=== PATIENT | male | born 1945 | race Caucasian/White ===

== ENCOUNTER 2017-11-07 05:42 | Inpatient (IN) | payer OTHER ==
[2017-11-07] VITALS (15 sets, daily range): BP systolic 134–191; BP diastolic 63–156
[~2017-11-07] VITALS: Ht 188 cm; Wt 132.1 kg
--- NOTE | ~2017-11-07 | O ---
[facility] [place] [address] OPERATIVE REPORT Name: SHYAM BURCH Room #: 420-P [facility] IN M.R.#: [id number] Admission: 11/07/17 Attend Phys: Shantell Camacho MD, Discharge: 11/15/17 Date of : 47 Report #: [id number] THIS REPORT FOR: //name// CC: FAM unknown Shantell Camacho DATE OF SERVICE: 11/07/2017 PREOPERATIVE DIAGNOSES: 1. Multiple incarcerated recurrent incisional ventral hernias. 2. Loss of abdominal domain. 3. Morbid obesity with a body mass index of 36.77. 4. Diabetes mellitus. 5. Hypertension. 6. Hypercholesterolemia. 7. Gastroesophageal reflux disease. 8. Suspected intra-abdominal adhesions. POSTOPERATIVE DIAGNOSES: 1. Multiple incarcerated recurrent incisional ventral hernias. 2. Loss of abdominal domain. 3. Morbid obesity with a body mass index of 36.77. 4. Diabetes mellitus. 5. Hypertension. 6. Hypercholesterolemia. 7. Gastroesophageal reflux disease. 8. Dense and significant intra-abdominal adhesions. 9. Ischemic abdominal wall fascia with synthetic suture material present. PROCEDURES PERFORMED: 1. Exploratory laparotomy with lysis of adhesions lasting 127 minutes. 2. Debridement of ischemic abdominal wall fascia with explantation of synthetic suture material. 3. Complex abdominal wall reconstruction with open repair of multiple incarcerated recurrent incisional ventral hernias with mesh. 4. Bilateral component separation of the transversus abdominis muscle bilaterally. 5. Adjacent tissue transfer closure of the anterior abdominal wall measuring 44 x 39 cm in dimension (1716 square cm). 6. Skin reduction/resection surgery. 7. Placement of a topical wound VAC device (SAURAV). 8. A modifier 22 procedure for extreme difficulty of procedure secondary to the greater than 2-hour lysis of adhesions in this morbidly obese male with multiple prior operations that required complex abdominal wall closure techniques and pushed the total operative time to greater than 4 hours as opposed to the usual 60-minute open ventral hernia repair with mesh. [address] [address] OPERATIVE REPORT Name: SHYAM BURCH Room #: 420-P [facility] IN .R.#: [id number] Admission: 11/07/17 Attend Phys: Shantell Camacho MD, Discharge: 11/15/17 Date of : 47 Report #: [id number] SURGEON: Shantell Camacho MD ELECTRIC DEICER INSPECTOR: Omari Mckenzie DO ANESTHESIA: General endotracheal anesthesia. ESTIMATED BLOOD LOSS: Minimal (less than 200 mL). COMPLICATIONS: None appreciated. SPECIMENS: 1. All debrided abdominal wall fascia and synthetic material to pathology. 2. Skin to pathology. 3. Omentum to pathology. INDICATIONS: The patient is a 72-year-old obese male who underwent an emergent exploratory laparotomy with Alvin patch repair of a perforated cecum at the time of a colonoscopy in the past. Since that time, the patient has developed recurrent bulging at the site of a prior hernia repair and has now proceeded to have multiple incarcerated recurrent incisional ventral hernias about his longitudinal midline wound. As it is becoming more uncomfortable and is enlarging significantly, indication was for definitive surgical repair. DESCRIPTION OF PROCEDURE: After explaining the risks, benefits and alternatives of the procedure with the patient in detail in the preoperative holding area and obtaining written consent, the patient was brought to the operating room and placed supine on the operating room table. After conducting a thorough timeout procedure, verifying correct patient and procedure, the patient was given general endotracheal anesthesia. Once adequate anesthesia was obtained, his SCDs were hooked up to pneumatic compression device, he was given a preoperative dose of antibiotics in line with the SCIP protocol. The patient's abdomen was now prepped and draped in standard surgical sterile fashion. A #10 bladed scalpel was used to create an elliptical longitudinal incision around his prior incision site that appears to have dehisced as it is quite scalloped today. Electrocautery was used to carry this down through skin and subcutaneous tissues to ensure hemostasis. At the superior most portion of the wound, I was able to gain intra-abdominal access with no bowel identified at that location. A finger was placed in the abdomen and I proceeded to take down the entire longitudinal midline fascial wound in a controlled setting using electrocautery and Metzenbaum scissor dissection. Once I had the longitudinal midline wound opened, I proceeded to continue lysis of adhesions, taking down all loops of small bowel and colon as well as omentum from the posterior aspect of the anterior abdominal wall. Once I had completed freeing this from the abdominal wall, we took down all interloop adhesions as well. We were now able to identify the ligament of Treitz and ran the small bowel in its entirety on [address] [address] OPERATIVE REPORT Name: SHYAM BURCH Room #: 420-P [facility] IN M.R.#: [id number] Admission: 11/07/17 Attend Phys: Shantell Camacho MD, Discharge: 11/15/17 Date of : 47 Report #: [id number] occasions, seeing no evidence of serosal injury enterotomies or other defects. The colon was identified and was healthy and uninjured throughout as well. I now proceeded to debride all nonviable ischemic fascia and hernia sac from the abdominal wall, which included explantation of synthetic suture material. Once I had debrided back to healthy fascia throughout, the fascia was elevated down the midline with Nadeem clamps, I proceeded to score the posterior fascia approximately 0.5 cm lateral to the medial border. This was scored using electrocautery and allowed me into the transversus space where I proceeded to open the entire space as far as possible in craniocaudal direction. Transecting the transversus abdominis muscle, which allowed me into the space allowed us to dissect as far laterally on each side as possible as this was done bilaterally in similar fashion. We now had the ability to approximate the fascia down the midline. Hemostasis was assured intraabdominally and I proceeded to close the posterior layer using looped #1 PDS suture in standard running fashion. This was tied down the subxiphoid location. As we did not have contamination, I selected a piece of Prolene mesh that measured 30 x 30 cm in dimension. This was trimmed to fit in the retrorectus space and was placed into position and sutured into place using numerous sutures of 0 PDS in standard fashion. I then utilized 30 mL of Tisseel to help anchor the mesh into place as well. I then closed the anterior fascia using looped #1 PDS in standard running fashion. The patient's skin had been considerably stretched out from the longstanding hernia and as such, I now performed skin reduction surgery, resecting all excess skin to bring the tissues together to where they were smooth and not on tension. Unfortunately due to the thinned out skin, there was not a lot of subcutaneous tissue underlying the midline wound and I elected to perform an adjacent tissue transfer closure of the anterior abdominal wall. The skin flaps were elevated and counter incisions were made internally longitudinally which allowed me to medially rotate vascularized pedicles of subcutaneous tissue to the midline. This allowed for complete closure overlying the fascial repair and was anchored together using numerous sutures of 3-0 PDS in standard inverted interrupted fashion. Prior to closing this, I did leave another 19-Northern Irish round Giovanni-Hastings drain in the subcutaneous space, which was brought out in the suprapubic space. Prior to closing the anterior fascia, I did leave two 19-Northern Irish round Giovanni-Hastings drains in the retrorectus space emanating from the right and left lower quadrants crossing over low in the pelvis and running up the gutters on each side. These were anchored to the skin using 2-0 nylon in standard fashion as well. I now used skin clyde down the longitudinal midline wound and placed a topical SAURAV wound VAC device at this juncture. At the end of the lengthy procedure that took greater than 4 hours, all instrument, needle and sponge counts were correct. The patient tolerated the lengthy procedure without issue, was awakened in the operating room and transitioned to the recovery room in stable condition with no apparent complications. <ELECTRONICALLY SIGNED> By: Shantell Camacho MD, FACS 11/18/17 [id number] Shantell Camacho MD, FACS /nt
--- NOTE | ~2017-11-07 | HC ---
[facility] [place] [address] CONSULTATION Name: SHYAM BURCH Room #: 420-P [facility] IN M.R.#: [id number] Admission: 11/07/17 Attend Phys: Shantell Camacho MD, Discharge: 11/15/17 Date of : 47 Report #: [id number] THIS REPORT FOR: //name// CC: FAM unknown Shantell Camacho DATE OF SERVICE: 11/11/2017 HISTORY OF PRESENT ILLNESS: The patient is a 72-year-old white male with multiple incarcerated recurrent incisional ventral hernias with loss of abdominal domain, morbid obesity, who was admitted to [facility] and underwent complex abdominal wall reconstruction with open repair in 11/07/2017. He is being monitored regarding hypertension, on lisinopril and metoprolol, his electrolyte abnormalities, renal insufficiency, his diet-controlled diabetes mellitus. We are seeing him in rehabilitation medicine consultation. PAST MEDICAL HISTORY: Includes diabetes mellitus type 2, hypertension, hyperlipidemia, morbid obesity, gout, bilateral total hip replacements. PAST SURGICAL HISTORY: As noted above. MEDICATIONS: Please see the full medication listing. ALLERGIES: OPIOIDS AND AMPICILLIN. HABITS: No history of tobacco abuse, occasional alcohol use. SOCIAL HISTORY: Lives in a house with his , 3 steps in. He was modified independent. Used a standard cane. He also has used a walker after his hip surgeries, but typically uses a cane. does not work and would be able to be of assistance. REVIEW OF SYSTEMS: Did not offer any current complaints of chest pain, shortness of breath or abdominal discomfort. No focal extremity pain complaints. He notes that he has decreased range of motion of the right shoulder and apparently had a very long hospitalization approximately 140 days with apparent hospital LTAC rehabilitation, etc. back in 2016. He notes from that he has had resultant decreased shoulder range of motion on the right. PHYSICAL EXAMINATION: GENERAL: He is a 72-year-old obese, pleasant white male, in no obvious distress. VITAL SIGNS: Last recorded temperature 98, pulse 61, respirations 17, blood pressure 167/73. He is alert and oriented. HEENT: Appeared to be benign. [facility] [address] [place] [address] CONSULTATION Name: SHYAM BURCH Room #: 420-P [facility] IN M.R.#: [id number] Admission: 11/07/17 Attend Phys: Shantell Camacho MD, Discharge: 11/15/17 Date of : 47 Report #: [id number] NEUROLOGIC: Cranial nerves grossly intact. He has a decreased shoulder range of motion of that right shoulder, but no specific pain complaints with movement. He gets to about 70 degrees forward flexion and abduction. Reasonable elbow, wrist and hand movement. Strength is probably a grade 4+ to 4/5, left upper extremity is 4/5. ABDOMEN: He has an abdominal binder in place. He has two abdominal drains that were noted. EXTREMITIES: In his lower extremities, he has no focal calf swelling, functional range of motion with strength grade 4-/5. DTRs are trace to 1. He is needing minimal assist with sit to stand and has difficulty from lower lying surface. He is currently on oxygen 2 liters. ASSESSMENT: A 72-year-old white male with the following problems: 1. Medical complexity with generalized debilitation. 2. Multiple incarcerated recurrent excisional ventral hernias, status post complex abdominal wall reconstruction and open repair 11/07/2017. 3. Acute renal insufficiency. 4. Electrolyte abnormalities. 5. Diabetes mellitus, diet controlled. 6. Morbid obesity. 7. Hypertension. PLAN: The patient will likely benefit from a short acute in-hospital inpatient rehabilitation stay. Insurance will need to be checked. We will be glad to follow along with you regarding his rehab therapy needs. <ELECTRONICALLY SIGNED> By: Peter Ferrer MD 11/19/17 1510 [id number] Peter Ferrer MD /nt
--- NOTE | ~2017-11-07 | EKG ---
[address] [address] ELECTROCARDIOGRAM REPORT Name: SHYAM BURCH Room #: 150-9 ADM IN M.R.#: [id number] Admission: 11/07/17 Attend Phys: Shantell Camacho MD, Discharge: Date of : 47 Report #: [id number] THIS REPORT FOR: //name// [facility] Test Date: 2017-11-07 Test Time: 10:57:52 Pat Name: SHYAM BURCH Department: Room: 150 9 Gender: M Construction Rigger: ROMULO : 1945 Requested By: Shantell Camacho Order Number: [id number] MD: Unruly Hinojosa Measurements Intervals [place] Rate: 53 P: 58 RI: 174 QRS: 59 QRSD: 85 T: 31 QT: 377 QTc: 354 Interpretive Statements Sinus rhythm Borderline T wave abnormalities No previous ECG available for comparison Electronically Signed On 11-07-2017 16:27:27 DEVELOPMENT COORDINATOR by Unruly Hinojosa [email or web address] <ELECTRONICALLY SIGNED> By: Unruly Hinojosa MD 11/07/17 1627 1057 1057 MD MAGDALENO Connell
--- NOTE | ~2017-11-07 | S ---
[facility] [place] [address] SURGICAL PATH RPT PROCEDURE Name: DAVID VINCENT Room #: 420-P ADM IN M.R.#: [id number] Admission: 11/07/17 Date of : 47 Discharge: Report #: [id number] Path Case #: [id number] PATHOLOGY REPORT COLLECTION DATE: 11/07/2017 RECEIVED DATE: 11/08/2017 SUBMITTING PHYS: Dr. Shantell Camacho OTHER PHYS: Dr. Omari Mckenzie, SPECIMEN(S) RECEIVED: A.Omentum B.Abdominal wall and hernia sac C.Abdominal skin * * * * * * * * * * * * FINAL DIAGNOSIS: A. Omentum, omentectomy: - 13.0 cm of omentum tissue showing congestion and reactive changes. B. Abdominal wall and hernia sac, repair: - Dense fibrovascular connective tissue with congestion, chronic inflammation and fat necrosis within adipose tissue. - Few fragments of fibrovascular connective tissue compatible with hernia sac. C. Abdominal skin, removal: - Skin and subcutaneous tissue with marked congestion and mild chronic inflammation. (IUV:db; 11/11/2017) PATHOLOGIST: Shaunna Tse M.D. REPORT ELECTRONICALLY SIGNED BY: Shaunna Tse M.D. DATE/TIME: 11/11/2017 13:25 * * * * * * * * * * * * GROSS PATHOLOGY: A. Received in formalin labeled "David Vincent, omentum," are multiple segments of yellow lobulated tissue admixed with barnes-umaña fibromembranous tissue measuring 13 x 12 x 4.2 cm in aggregate dimensions. Sectioning of the specimen reveals homogenous yellow cut surfaces throughout, with no masses or lesions noted grossly. The specimen is submitted representatively in cassettes A1 through A3. B. Received in formalin labeled "David Vincent, abdominal wall and hernia sac," are five segments of partially encapsulated, pale umaña to barnes-umaña fibromembranous tissue measuring 14.8 x 12.7 x 3.2 cm in aggregate dimensions. Sectioning reveals no masses or lesions. The specimen is submitted representatively in cassettes B1 and B2. C. Received in formalin labeled "Carlton Hernandez, abdominal skin," [address] [address] SURGICAL PATH RPT PROCEDURE Name: DAVID VINCENT Room #: 420-P ADM IN M.R.#: [id number] Admission: 11/07/17 Date of : 47 Discharge: Report #: [id number] Path Case #: [id number] are two segments of pale umaña, grossly unremarkable skin with attached underlying yellow lobulated tissue and dark umaña-brown fibromembranous tissue measuring 29.0 x 6.8 x 1.8 cm in aggregate dimensions. No masses or lesions are noted grossly. The specimen is submitted representatively in cassettes C1 and C2. (DAC; 11/08/2017) CLINICAL HISTORY: Ventral hernia INITIAL CPT CODE(S): A; 74589 B; 27288 C; 99661 Professional services performed by [facility] [address], [place] [address] Technical services performed by [facility] at [address] [place] [address], [address], [place] [address]. [facility] [address] [place] [address] PHONE: [phone] DIRECTOR: Magdiel Cruz M.D. * * * END OF REPORT * * *
[~2017-11-07 05:42] MED LIST: ALLOPURINOL 10100 M1 PO; ASPIR 8181 MG PO; ATORVASTATIN CA40 MG PO; CENTRUM SILVER1 EAC2 PO; FLOMAX0.4 MG PO; GLUCOSAMINE CH1 EAC2 PO; HYDROCHLOROTHIA25 M2 PO; NAPROSYN500 MG PO; PEPCID20 MG PO; PRINIVIL20 MG PO; TRAMADOL 50 MG50 MG PO
[2017-11-07 11:19] LABS: CALCIUM 9.1 mg/dL (8.5-10.1); CREATININE 1.3 mg/dL (0.7-1.3); POTASSIUM 4.7 mmol/L (3.5-5.1)
[2017-11-08] VITALS (35 sets, daily range): BP systolic 112–167; BP diastolic 58–105
[2017-11-08 04:47] LABS: HEMATOCRIT 40.1 % (42.0-52.0); HEMOGLOBIN 13.1 gm/dL (14.0-18.0); MCH 29.3 pg (26.0-34.0); MCHC 32.8 g/dL (28.0-37.0); MCV 89.3 fL (80.0-100.0); RBC 4.49 mil/uL (4.50-6.00); RDW 13.6 % (10.5-14.5); WBC 10.3 thou/uL (4.0-11.0)
[2017-11-08 05:08] LABS: ALBUMIN 3.1 g/dL (3.4-5.0); CALCIUM 8.2 mg/dL (8.5-10.1); CREATININE 1.5 mg/dL (0.7-1.3); POTASSIUM 5.4 mmol/L (3.5-5.1); TOTAL BILIRUBIN 0.5 mg/dL (<0.1-1.0); TOTAL PROTEIN 6.3 g/dL (6.4-8.2)
[2017-11-08 16:36] LABS: FOLIC ACID 38.5 ng/mL (8.6-58.9)
[2017-11-09] VITALS (38 sets, daily range): BP systolic 149–195; BP diastolic 61–84
[2017-11-09 06:24] LABS: ABSOLUTE NEUTROPHILS 9.4 thou/uL (1.4-8.2); BASOPHILS 0.5 % (0.0-2.0); EOSINOPHILS 0.1 % (0.0-3.0); HEMATOCRIT 38.4 % (42.0-52.0); HEMOGLOBIN 12.6 gm/dL (14.0-18.0); LYMPHOCYTES 7.6 % (24.0-44.0); MCH 29.6 pg (26.0-34.0); MCHC 32.7 g/dL (28.0-37.0); MCV 90.4 fL (80.0-100.0); MONOCYTES 7.7 % (1.0-8.0); PLATELET COUNT 206 thou/uL (150-400); POLYS 84.1 % (36.0-66.0); RBC 4.25 mil/uL (4.50-6.00); RDW 13.8 % (10.5-14.5); WBC 11.2 thou/uL (4.0-11.0)
[2017-11-09 06:40] LABS: ALBUMIN 3.1 g/dL (3.4-5.0); CALCIUM 8.3 mg/dL (8.5-10.1); CREATININE 1.7 mg/dL (0.7-1.3); MAGNESIUM 2.1 mg/dL (1.8-2.4); POTASSIUM 4.6 mmol/L (3.5-5.1); TOTAL BILIRUBIN 0.5 mg/dL (<0.1-1.0); TOTAL PROTEIN 6.7 g/dL (6.4-8.2)
[2017-11-10] VITALS (8 sets, daily range): BP systolic 129–190; BP diastolic 69–108
[2017-11-10 05:20] LABS: ABSOLUTE NEUTROPHILS 10.6 thou/uL (1.4-8.2); BASOPHILS 0.2 % (0.0-2.0); EOSINOPHILS 0.2 % (0.0-3.0); HEMATOCRIT 38.6 % (42.0-52.0); HEMOGLOBIN 12.5 gm/dL (14.0-18.0); LYMPHOCYTES 6.9 % (24.0-44.0); MCH 29.2 pg (26.0-34.0); MCHC 32.4 g/dL (28.0-37.0); MCV 90.3 fL (80.0-100.0); PLATELET COUNT 201 thou/uL (150-400); POLYS 85.7 % (36.0-66.0); RBC 4.28 mil/uL (4.50-6.00); RDW 14.1 % (10.5-14.5); WBC 12.3 thou/uL (4.0-11.0)
[2017-11-10 05:27] LABS: CALCIUM 8.3 mg/dL (8.5-10.1); CREATININE 1.4 mg/dL (0.7-1.3)
[2017-11-11 03:39] VITALS: BP 198/85
[2017-11-11 05:26] LABS: ABSOLUTE NEUTROPHILS 9.6 thou/uL (1.4-8.2); BASOPHILS 0.2 % (0.0-2.0); EOSINOPHILS 0.9 % (0.0-3.0); HEMATOCRIT 37.5 % (42.0-52.0); HEMOGLOBIN 12.2 gm/dL (14.0-18.0); LYMPHOCYTES 7.5 % (24.0-44.0); MCH 29.2 pg (26.0-34.0); MCHC 32.6 g/dL (28.0-37.0); MCV 89.8 fL (80.0-100.0); MONOCYTES 6.1 % (1.0-8.0); PLATELET COUNT 223 thou/uL (150-400); POLYS 85.3 % (36.0-66.0); RBC 4.17 mil/uL (4.50-6.00); RDW 13.8 % (10.5-14.5); WBC 11.2 thou/uL (4.0-11.0)
[2017-11-11 05:44] LABS: CALCIUM 8.4 mg/dL (8.5-10.1); CREATININE 1.3 mg/dL (0.7-1.3); POTASSIUM 3.6 mmol/L (3.5-5.1)
[2017-11-11 07:05] VITALS: BP 209/72
[2017-11-11 09:53] VITALS: BP 167/73
[2017-11-11 17:25] VITALS: BP 167/87
[2017-11-11 19:35] VITALS: BP 168/63
[2017-11-12] VITALS: BP 148/76
[2017-11-12 03:35] VITALS: BP 183/85
[2017-11-12 08:19] VITALS: BP 164/75
[2017-11-12 12:43] LABS: CALCIUM 8.7 mg/dL (8.5-10.1); CREATININE 1.6 mg/dL (0.7-1.3); MAGNESIUM 2.7 mg/dL (1.8-2.4); POTASSIUM 3.4 mmol/L (3.5-5.1)
[2017-11-12 17:32] VITALS: BP 172/79
[2017-11-12 21:24] VITALS: BP 149/77
[2017-11-13 04:00] VITALS: BP 159/65
[2017-11-13 07:45] VITALS: BP 147/61
[2017-11-13 15:38] VITALS: BP 146/69
[2017-11-13 16:42] LABS: CALCIUM 8.6 mg/dL (8.5-10.1); CREATININE 1.7 mg/dL (0.7-1.3); MAGNESIUM 2.5 mg/dL (1.8-2.4); POTASSIUM 3.7 mmol/L (3.5-5.1)
[2017-11-13 20:00] VITALS: BP 158/98
[2017-11-14 04:30] VITALS: BP 178/75
[2017-11-14 08:40] VITALS: BP 189/84
[2017-11-14 10:19] VITALS: BP 189/84
[2017-11-14 11:00] VITALS: BP 159/79
[2017-11-14 17:08] VITALS: BP 155/76
[2017-11-14 19:32] VITALS: BP 152/74
[2017-11-15 03:20] VITALS: BP 195/78
[2017-11-15 07:35] VITALS: BP 185/74
[2017-11-15 10:06] VITALS: BP 189/84
[2017-11-15 11:15] VITALS: BP 189/84
== END 2017-11-15 12:41 | disposition home health service (06) | DRG 853 ==
LOC: TBA 05:42 → ICU 05:42 → PRE 09:07 → ICU 19:10 → 4E 11-10 17:32 → ENTRNSPT 11-15 12:36 → EDTRNSPTSTS 11-15 12:39 → 4E 11-15 12:41
PROVIDERS: Hospitalist; Internal Medicine; Surgery
PROC: 0DNU0ZZ Release Omentum, Open Approach (ICD-10-PCS; principal; 2017-11-07)
PROC: 0WUF0JZ Supplement Abdominal Wall with Synthetic Substitute, Open Approach (ICD-10-PCS; principal; 2017-11-07)
PROC: 0JB80ZZ Excision of Abdomen Subcutaneous Tissue and Fascia, Open Approach (ICD-10-PCS; principal; 2017-11-07)
DX: A41.9 Sepsis, unspecified organism (principal); N17.0 Acute kidney failure with tubular necrosis; E43 Unspecified severe protein-calorie malnutrition; K43.0 Incisional hernia with obstruction, without gangrene; E87.0 Hyperosmolality and hypernatremia; M62.28 Nontraumatic ischemic infarction of muscle, other site; E78.00 Pure hypercholesterolemia, unspecified; K21.9 Gastro-esophageal reflux disease without esophagitis; K66.0 Peritoneal adhesions (postprocedural) (postinfection); M10.9 Gout, unspecified; Z96.643 Presence of artificial hip joint, bilateral; E87.8 Other disorders of electrolyte and fluid balance, not elsewhere classified; E66.01 Morbid (severe) obesity due to excess calories; N40.0 Benign prostatic hyperplasia without lower urinary tract symptoms; E87.5 Hyperkalemia; K59.03 Drug induced constipation; T40.605A Adverse effect of unspecified narcotics, initial encounter; E11.65 Type 2 diabetes mellitus with hyperglycemia; E11.22 Type 2 diabetes mellitus with diabetic chronic kidney disease; I12.9 Hypertensive chronic kidney disease with stage 1 through stage 4 chronic kidney disease, or unspecified chronic kidney disease; N18.9 Chronic kidney disease, unspecified; Z68.37 Body mass index [BMI] 37.0-37.9, adult; Z89.022 Acquired absence of left finger(s); Z79.899 Other long term (current) drug therapy; Y92.89 Other specified places as the place of occurrence of the external cause; Z88.8 Allergy status to other drugs, medicaments and biological substances
CPT/HCPCS: 10204; 10783; 50010; 50093; 50101; 50331; 50386; 50455; 50507; 51412; 51437; 56525; 56527; 56530; 57092; 62110; 62900; 64031; 70005